=== PATIENT | male | born 1985 | race Caucasian/White ===

== ENCOUNTER 2017-01-28 15:30 | Emergency (ER) | payer MEDICARE, OTHER ==
[2017-01-28 15:41] VITALS: TEMP 97.5
[2017-01-28] MEDS ORDERED: ALPRAZolam 0.25 MG TAB PO STA (15:56)
--- NOTE | 2017-01-28 16:02 | ED ---
General Adult HPI - General Chief complaint: Psychiatric Symptoms Stated complaint: Mental Health Time Seen by Provider: 01/28/17 15:49 Source: patient Mode of arrival: ambulatory Limitations: no limitations - History of Present Illness Initial comments: 31-year-old male with history of anxiety presenting for acute worsening of anxiety. Patient states he has a history of optic neuropathy and has had gradually worsening eyesight throughout his life. He states he recently saw his feed mixer who did testing which was reassuring. However he feels worried that this reassuring testing means that he doesn't deserve to have his disability and this is making him feel guilty. He is feeling worsening anxiety due to this. He denies any other medical complaints at this time. He is not taking any medications for anxiety currently. He is not currently seeing a therapist for anxiety. He denies any suicidal or homicidal ideations. Denies any substance abuse. - Related Data Previous Rx's Medication Instructions Recorded ALPRAZolam [Xanax] 0.25 mg PO HS PRN #5 tab 01/28/17 Allergies Allergy/AdvReac Type Severity Reaction Status Date / Time No Known Allergies Allergy Verified 01/28/17 16:07 Review of Systems ROS Statement: Those systems with pertinent positive or pertinent negative responses have been documented in the HPI. ROS Other: All systems not noted in ROS Statement are negative. Past Medical History Past Medical History: Eye Disorder, Hyperlipidemia Additional Past Medical History / Comment(s): kidney stones, hereditary optic distrophy History of Any Multi-Drug Resistant Organisms: None Reported Past Surgical History: No Surgical Hx Reported Additional Past Surgical History / Comment(s): testicle surgery Past Psychological History: No Psychological Hx Reported Smoking Status: Former smoker Past Alcohol Use History: Occasional Past Drug Use History: None Reported - Past Family History Mother Family Medical History: No Reported History General Exam - General Exam Comments Initial Comments: General: Awake and Alert. No acute distress. Does not appear acutely ill. Eyes: ROSETTE, EOM intact. No nystagmus. No scleral icterus. HENT: Atraumatic, normocephalic. Mucous membranes moist. Trachea midline. Neck: The neck is supple, there is no tenderness or JVD. Cardiovascular: Regular rate and rhythm. No murmur, rub, or gallop is appreciated. Distal pulses intact. Respiratory: Lungs are clear to auscultation bilaterally. No wheezes, rales, rhonchi. No respiratory distress. Gastrointestinal: Soft, Nontender. No rebound or guarding. Non-distended. No masses or organomegaly noted. No CVA tenderness. Musculoskeletal: No tenderness. Normal ROM. No gross deformity. No strength deficits. Neurological: A&Ox3. CN II-XII grossly intact, There are no obvious motor or sensory deficits. Coordination appears grossly intact. Speech is normal. Skin: Skin is warm and dry and no rashes or lesions are noted. Psychiatric: Cooperative. Patient appears anxious. Denies suicidal or homicidal ideations. Limitations: no limitations Course Vital Signs 01/28/17 01/28/17 15:35 18:14 Temperature 97.5 F L Pulse Rate 89 80 Respiratory 16 18 Rate Blood Pressure 137/81 125/69 O2 Sat by Pulse 99 98 Oximetry Medical Decision Making - Medical Decision Making 31-year-old male presenting for anxiety. He denies any suicidal or homicidal ideations. Does not appear to be acutely psychotic. No other medical complaints requiring workup at this time. Patient was given Xanax with significant improvement of his symptoms on reevaluation. Discussed importance of outpatient counseling and therapy follow-up. Rx provided for Xanax to be used for rescue only. Discussed concerning signs symptoms from it return to the ED. Given psychological referrals. He does not appear to require further workup or clearance for behavioral health evaluation this time. Patient is agreeable with plan and discharge home. Disposition Clinical Impression: Acute anxiety Disposition: HOME SELF-CARE Condition: Stable Instructions: Generalized Anxiety Disorder (ED) Prescriptions: ALPRAZolam [Xanax] 0.25 mg PO HS PRN #5 tab PRN Reason: Anxiety Referrals: Nabor Hamm MD [Primary Care Provider] - 1-2 days Time of Disposition: 17:31
[2017-01-28 18:14] VITALS: BP 125/69; PULSE 80; RESP 18
== END 2017-01-28 18:14 | disposition home or self-care (01) ==
LOC: EC 15:30
DX: F41.9 Anxiety disorder, unspecified (principal); Z87.891 Personal history of nicotine dependence
CPT/HCPCS: 82075; 99284

== ENCOUNTER 2017-01-28 21:08 | Emergency (ER) | payer MEDICARE, OTHER ==
[2017-01-28 21:14] VITALS: RESP 18
--- NOTE | 2017-01-28 22:04 | ED ---
Psych HPI - General Chief Complaint: Psychiatric Symptoms Stated Complaint: Mental Health Time Seen by Provider: 01/28/17 21:36 Source: patient, family, RN notes reviewed, old records reviewed Mode of arrival: ambulatory - History of Present Illness Initial Comments: This is a 31-year-old male presenting to the emergency department for the second time today with chief complaint of anxiety and severe depression. 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 Patient states that all of this has made him become more depressed. He has not been able to eat or drink anything. He reports that he has thought that his family would be better without him. He reports that he is not able to drive or do his job at this time due to his prognosis of being blind. Patient states that he does not take any medications for anxiety or depression. He was seen earlier today and was discharged with a prescription for his anxiety. He states he did not take anything. Patient states that he has no active suicidal plan. Denies any homicidal ideations. He is here currently with his fiance and he states that he does have 2 younger children at home. - Related Data Previous Rx's Medication Instructions Recorded ALPRAZolam [Xanax] 0.25 mg PO HS PRN #5 tab 01/28/17 Allergies Allergy/AdvReac Type Severity Reaction Status Date / Time No Known Allergies Allergy Verified 01/28/17 22:01 Review of Systems ROS Statement: Those systems with pertinent positive or pertinent negative responses have been documented in the HPI. ROS Other: All systems not noted in ROS Statement are negative. Past Medical History Past Medical History: Eye Disorder, Hyperlipidemia Additional Past Medical History / Comment(s): kidney stones, hereditary optic distrophy History of Any Multi-Drug Resistant Organisms: None Reported Past Surgical History: No Surgical Hx Reported Additional Past Surgical History / Comment(s): testicle surgery Past Psychological History: Anxiety Smoking Status: Former smoker Past Alcohol Use History: Occasional Past Drug Use History: None Reported - Past Family History Mother Family Medical History: No Reported History General Exam - General Exam Comments Initial Comments: This is a 31-year-old male. Patient does not appear to be in any acute distress. Patient is wearing glasses. Limitations: no limitations General appearance: alert, in no apparent distress Head exam: Present: atraumatic, normocephalic, normal inspection Eye exam: Present: normal appearance, PERRL, EOMI. Absent: scleral icterus, conjunctival injection, periorbital swelling ENT exam: Present: normal exam, normal oropharynx, mucous membranes moist Neck exam: Present: normal inspection. Absent: tenderness, meningismus, lymphadenopathy Respiratory exam: Present: normal lung sounds bilaterally Cardiovascular Exam: Present: regular rate, normal rhythm, normal heart sounds. Absent: systolic murmur, diastolic murmur, rubs, gallop, clicks GI/Abdominal exam: Present: soft, normal bowel sounds. Absent: distended, tenderness, guarding, rebound, rigid Extremities exam: Present: normal inspection, full ROM, normal capillary refill. Absent: tenderness, pedal edema, joint swelling, calf tenderness Back exam: Present: normal inspection Neurological exam: Present: alert, oriented X3, CN II-XII intact Psychiatric exam: Present: normal affect, depressed (Patient reports that she is just severely depressed. He has not been able to eat anything. Patient states that "his family would be better off without him ".). Absent: normal mood, flat affect, manic, homicidal ideation, suicidal ideation Skin exam: Present: warm, dry, intact, normal color. Absent: rash Course Vital Signs 01/28/17 01/29/17 21:09 00:01 Temperature 98.2 F 98.3 F Pulse Rate 77 83 Respiratory 18 18 Rate Blood Pressure 138/86 136/80 O2 Sat by Pulse 100 100 Oximetry Medical Decision Making - Medical Decision Making Is a 31-year-old male is any with chief complaint of severe depression and anxiety. Patient states that he does not take any medications does not see a primary care physician or counseling services. Patient reports he is recently diagnosed with a hereditary disorder which will make and eventually be blind. Patient reports that these new findings that made him feel much worse. Denies any associated physical symptoms. Patient reports that he did call the crisis hotline yesterday however they did not offer him much help about getting an appointment soon. Patient is a medically cleared and evaluated by EPS. EPS states that he does not answer feel like the depression is related to his blindness. He reports that it is more from recent feelings about his father and abandonment. Patient is concerned that he may abandon his children like his father abandoned him. Patient denies any active suicidal thoughts. EPS feels unsafe for him to go home to with his fiance and family. He was given information for outpatient treatment. Patient and patient's family agree to monitor him. Return parameters were discussed. - Lab Data Lab Results 01/28/17 Range/Units 21:33 Urine Opiates Screen Not Detected (NotDetected) Ur Oxycodone Screen Not Detected (NotDetected) Urine Methadone Screen Not Detected (NotDetected) Ur Propoxyphene Screen Not Detected (NotDetected) Ur Barbiturates Screen Not Detected (NotDetected) U Tricyclic Antidepress Not Detected (NotDetected) Ur Phencyclidine Scrn Not Detected (NotDetected) Ur Amphetamines Screen Not Detected (NotDetected) U Methamphetamines Scrn Not Detected (NotDetected) U Benzodiazepines Scrn Detected H (NotDetected) Urine Cocaine Screen Not Detected (NotDetected) U Marijuana (THC) Screen Not Detected (NotDetected) Disposition Clinical Impression: Depression Disposition: HOME SELF-CARE Condition: Good Instructions: Depression (ED), Suicide Prevention for Adults (ED) Additional Instructions: Patient advised to follow-up with outpatient treatment plans. Return to the emergency department if any alarming signs or symptoms occur. Return to emergency department once if there is any active suicidal thoughts or plans. Referrals: Nadiya Renee MD [STAFF PHYSICIAN] - 1-2 days Antonio Jerry MD [STAFF PHYSICIAN] - 1-2 days Time of Disposition: 23:50
[2017-01-29 00:04] VITALS: BP 136/80; PULSE 83; TEMP 98.3
== END 2017-01-29 00:12 | disposition home or self-care (01) ==
LOC: EC 21:08
DX: F32.9 Major depressive disorder, single episode, unspecified (principal); F41.9 Anxiety disorder, unspecified; Z87.891 Personal history of nicotine dependence
CPT/HCPCS: 80306; 82075; 99284